=== PATIENT | male | born 1995 | race Caucasian/White ===

== ENCOUNTER 2025-07-04 17:50 | Emergency (ER) | payer MEDICAID ==
[~2025-07-04] VITALS: Ht 185.4 cm; Wt 102.3 kg
--- NOTE | 2025-07-04 17:53 | Physician Documentation ---
History of Present Illness ~ Stated Complaint: 5150 Time Seen by MD: 17:51 HPI This 30-year-old male presents to the ED via [facility] for an attempted suicide. Patient states that he has got a long psychiatric history including ADHD PTSD autism and schizoaffective disorder today the patient states that his girlfriend was going to break up with him and made him feel as though he was not worsening thing. Therefore he chose to use a vacuum basting cleaner cord rapid around his neck and applied tension. States that he bled enough tension to cause shortness of breath but he never passed out or lost consciousness. States he has been taking his medication as directed. Day of Onset: Jul 04, 2025 Medication Reconciliation Allergies: Coded Allergies: quetiapine (Verified Allergy, Severe, THROAT SWELLING, 07/04/25) Scheduled Trazodone HCl (Trazodone HCl), 1 TAB PO HS, (Reported) Review of Systems All Other Systems at this time: Reviewed and Negative ROS As stated above in the HPI, otherwise all systems are reviewed and negative. Physical Exam Physical Exam General: Alert, no apparent distress. Neck: Full range of motion. no ligature amor Respiratory: Lungs clear, no respiratory distress. Cardiovascular: Regular rate and rhythm, no murmurs. Neurologic: Oriented x4. Psychiatric: Normal mood and affect, forthcoming Skin: Normal color, warm and dry. No edema, no ecchymosis. Progress Results/Orders Results/Orders Orders - LITO PADILLA NP Med Rec (07/04/25 17:53) Close Observation Level (07/04/25 17:53) Covid19 Binax Poc Result Entry (07/04/25 17:53) Regular Diet (07/05/25 Breakfast) Cta Neck (07/04/25 17:54) Completed Orders - LITO PADILLA NP Cbc/Diff (07/04/25 17:53) Drug Screen, Urine (07/04/25 17:53) Ethanol (07/04/25 17:53) TSH (07/04/25 17:53) BMP (07/04/25 17:53) Cta Neck (07/04/25 17:54) Iohexol 350mg/Ml 100ml (Omnipaque 350mg/ (07/04/25 18:43) Ua With Microscopic (07/04/25 19:00) Vital Signs 07/04/25 07/04/25 17:55 18:02 Temp 98.9 Pulse 80 Resp 18 16 B/P (MAP) 136/94 Pulse Ox 96 Laboratory Tests Test 07/04/25 18:04 07/04/25 19:00 07/04/25 19:13 White Blood Count 10.7 Red Blood Count 4.80 Hemoglobin 14.6 Hematocrit 42.1 Mean Corpuscular Volume 87.7 Mean Corpuscular Hemoglobin 30.5 Mean Corpuscular Hemoglobin Concent 34.8 Red Cell Distribution Width 13.5 Platelet Count 234 Mean Platelet Volume 8.1 Neutrophils (%) (Auto) 71.8 Lymphocytes (%) (Auto) 19.7 L Monocytes (%) (Auto) 6.9 Eosinophils (%) (Auto) 0.5 Basophils (%) (Auto) 1.1 H Neutrophils # (Auto) 7.7 Lymphocytes # (Auto) 2.1 Monocytes # (Auto) 0.7 Eosinophils # (Auto) 0.0 Basophils # (Auto) 0.1 CBC Comment Sodium Level 139 Potassium Level 3.9 Chloride Level 104 Carbon Dioxide Level 29.0 Anion Gap 6 L Blood Urea Nitrogen 13 Creatinine 1.15 H Estimated GFR/1.73 m2 75 BUN/Creatinine Ratio 11.3 Glucose Level 102 Calcium Level 9.7 Albumin 4.3 Thyroid Stimulating Hormone (TSH) 2.01 Chemistry Comments Ethyl Alcohol Level < 10 Urine Specimen Description Cln catch midstream Urine Color Yellow Urine Clarity Slightly cloudy Urine pH 8.5 Urine Specific [place] 1.020 Urine Protein 30 H Urine Glucose (UA) Negative Urine Ketones Negative Urine Occult Blood Negative Urine Nitrite Negative Urine Bilirubin Negative Urine Urobilinogen 1.0 Urine Leukocyte Esterase Negative Urine RBC 0-2 Urine WBC 0-4 Urine Squamous Epithelial Cells Few Urine Amorphous Phosphates 2+ Urine Bacteria Few Urine Mucus Few Volume Urine Centrifuged 10 ml Urine Comment Urine Opiates Screen Negative Urine Methadone Screen Negative Urine Fentanyl Screen Negative Urine Barbiturates Screen Negative Urine Phencyclidine Screen Negative Urine Amphetamines Screen Negative Urine Benzodiazepines Screen Negative Urine Cocaine Screen Negative Urine Cannabinoids Screen Positive Drug Screen Comment SARS-CoV-2 Antigen (Rapid) Negative Medical Decision Making Differential Dx:Considerations: Include: Alcohol abuse, Anxiety, Bipolar disorder, Conversion disorder, Depression, Encephaloathy, Homicidal, Panic disorder, Personality disorder, Schizophrenia, Substance abuse, Suicidal, Other Departure Impression: Primary Impression: Suicidal ideation Additional Impressions: Schizoaffective disorder Depression Additional Instructions: Transfer orders for [facility]: At this time there is no evidence of an emergent medical condition that would preclude (admission/transfer) to a psychiatric unit via [facility] protocol for further psychiatric, as well as medical evaluation and treatment. At this time I have no reason to believe that transfer via [facility] protocol would have serious medical compromise in the patient's health. Referrals: NO PRIMARY CARE PROVIDER (PCP) Signature Scribe Signature: g Attestation: Scribed for Lito Padilla Np by Lito Luna NP . 07/04/25 18:09 LITO PADILLA NP Jul 04, 2025 17:53
[2025-07-04 18:14] LABS: MEAN PLATELET VOLUME 8.1 FL (7.4-10.4); RED CELL DISTRIBUTION WIDTH 13.5 % (11.5-14.5)
[2025-07-04 18:34] LABS: CREATININE 1.15 MG/DL (0.60-1.10); TOTAL CARBON DIOXIDE 29.0 MMOL/L (24-32); eCRCL 106 ML/MIN; eGFR 75 ML/MIN
[2025-07-04 18:41] LABS: ETHANOL < 10 MG/DL (<10)
[2025-07-04] MEDS ORDERED: TRAZ-256 PO (19:17)
[2025-07-04 19:25] LABS: LEUKOCYTE ESTERASE ,URINE NEGATIVE (Neg); NITRITES, URINE NEGATIVE (Neg); OCCULT BLOOD,URINE NEGATIVE (Neg)
[2025-07-04 19:32] LABS: UA COLLECTION TYPE CLN CATCH MIDSTREAM
[2025-07-04 19:35] LABS: AMORPHOUS PHOSPHATES 2+; MUCUS STRANDS FEW /LPF (Neg); SQUAMOUS EPITHELIAL CELL,UR FEW /LPF (FEW)
[2025-07-04 19:47] LABS: URINE AMPHETAMINE SCREEN NEGATIVE (Neg); URINE BARBITUATE SCREEN NEGATIVE (Neg); URINE BENZODIAZEPINES SCREEN NEGATIVE (Neg); URINE CANNABINOID SCREEN POSITIVE (Neg); URINE COCAINE SCREEN NEGATIVE (Neg); URINE METHADONE SCREEN NEGATIVE (Neg); URINE OPIATE SCREEN NEGATIVE (Neg); URINE PHENCYCLIDINE SCREEN NEGATIVE (Neg)
--- NOTE | 2025-07-04 19:54 | RADIOLOGY REPORT ---
CLINICAL HISTORY: strangulation TECHNIQUE: CT angiogram of the neck was performed without and with intravenous contrast. 3D MIP reconstructed images were created and archived on the PACS system. This exam was performed according to our departmental dose optimization program. Up-to-date CT equipment and radiation dose reduction techniques are utilized as appropriate. CTDI 23.8 DLP 11.9 COMPARISON: None FINDINGS: The common carotid, internal carotid, and vertebral arteries are patent with no evidence for high grade narrowing, occlusion, and dissection. There is no significant narrowing at the carotid bulbs per NASCET criteria. No acute fracture or dislocation is seen. The main pulmonary artery is borderline dilated, measuring 3.2 cm. IMPRESSION: No acute CTA abnormality of the major neck arterial vasculature. 4 line dilated 3.2 cm main pulmonary artery, which can be seen in the setting of pulmonary hypertension.
[2025-07-04] MEDS ORDERED: ATOM40CA7 PO (20:22)
[2025-07-04] MEDS ORDERED: BREX1TAB PO (20:22)
[2025-07-04] MEDS ORDERED: HYDR-3686 PO (20:22)
[2025-07-05 06:44] VITALS: O2SAT 97
[2025-07-05] MEDS: BREXPIPRAZOLE 1 MG PO SCH (08:00)
[2025-07-05 16:29] VITALS: BP 106/60; PULSE 63; RESP 16; TEMP 97.9
== END 2025-07-05 16:33 | disposition home or self-care (01) ==
LOC: ER 17:51
DX: R45.851 Suicidal ideations (principal); F25.9 Schizoaffective disorder, unspecified; F32.A Depression, unspecified; Z88.8 Allergy status to other drugs, medicaments and biological substances; Z79.899 Other long term (current) drug therapy; Z20.822 Contact with and (suspected) exposure to COVID-19
CPT/HCPCS: 36415; 70498; 80048; 80305; 80320; 81001; 84443; 85025; 87811; 99285; Q0177; Q9967